=== PATIENT | male | born 1950 | race Two or more races ===

== ENCOUNTER 2019-12-31 09:20 | Outpatient (CLI) | payer MEDICARE, MEDICAID | END 2019-12-31 23:59 | disposition home or self-care (01) | LOC: WOU 09:20 | PROVIDERS: ATTEND Podiatrist Foot & Ankle Surgery | DX: R60.0 Localized edema (principal); M79.605 Pain in left leg; M79.604 Pain in right leg | CPT/HCPCS: G0463 ==

== ENCOUNTER 2019-12-31 10:30 | Emergency (ER) | payer MEDICARE, OTHER ==
[~2019-12-31] VITALS: Ht 167.6 cm; Wt 71.2 kg
[2019-12-31 10:41] VITALS: BP 118/71
== END 2019-12-31 12:44 | disposition home or self-care (01) ==
LOC: ER 10:30
DX: R60.0 Localized edema (principal); M79.10 Myalgia, unspecified site; I10 Essential (primary) hypertension; Z86.73 Personal history of transient ischemic attack (TIA), and cerebral infarction without residual deficits
CPT/HCPCS: 93970-TC

== ENCOUNTER 2020-01-05 13:50 | Outpatient (CLI) | payer MEDICARE, OTHER | END 2020-01-05 23:59 | disposition home or self-care (01) | LOC: WOU 13:50 | PROVIDERS: ATTEND Podiatrist Foot & Ankle Surgery | DX: M76.821 Posterior tibial tendinitis, right leg (principal); R60.0 Localized edema; M79.604 Pain in right leg; M79.605 Pain in left leg; I10 Essential (primary) hypertension | CPT/HCPCS: G0463 ==